=== PATIENT | male | born 1980 | race Two or more races ===

== ENCOUNTER 2025-02-05 09:56 | Emergency (ER) | payer OTHER ==
[~2025-02-05] VITALS: Ht 175.3 cm; Wt 89.4 kg
[2025-02-05] MEDS ORDERED: LIDOCAINE HCL 1% 10ML VIAL PERCUT ONE (10:45)
[2025-02-05] MEDS ORDERED: POVIDONE-IODINE SCRUB 118 ML BOTT TOP ONE (11:00)
== END 2025-02-05 12:48 | disposition home or self-care (01) ==
LOC: ER 11:14
DX: S61.217A Laceration without foreign body of left little finger without damage to nail, initial encounter (principal); W45.8XXA Other foreign body or object entering through skin, initial encounter; Y93.89 Activity, other specified; Y92.89 Other specified places as the place of occurrence of the external cause; Y99.9 Unspecified external cause status